=== PATIENT | female | born 1970 | race Caucasian/White ===

== ENCOUNTER 2019-05-13 05:09 | Emergency (ER) | payer SELFPAY ==
[~2019-05-13] VITALS: Ht 167.6 cm; Wt 75.3 kg
[2019-05-13 05:14] VITALS: BP 122/81
--- NOTE | 2019-05-13 05:16 | NUR ---
PT AMBULATED TO ER BED 2
--- NOTE | 2019-05-13 05:23 | NUR ---
DR. SAMANO BEDSIDE EVALUATING PT
--- NOTE | 2019-05-13 05:24 | NUR ---
48/F PRESENTS TO ED WITH FAMILY/FRIEND, C/O GRADUAL ONSET, WORSENING NONPRODUCTIVE COUGH AND WHEEZING, X1 WEEK. BL INSPIRATORY AND EXPIRATORY WHEEZING NOTED. DENIES ANY PAIN. AOX4, SKIN NORMAL WARM AND DRY, RR EVEN AND UNLABORED. HX ASTHMA; SOCIAL HX SMOKER (LESS THAN 10 CIGARETTES/DAY) RX INHALER (RAN OUT)
[2019-05-13] MEDS ORDERED: predniSONE 20 MG TAB PO ONE (05:25)
[2019-05-13] MEDS ORDERED: ALBUTEROL 0.083% 2.5 MG/3 ML NEBU INH ONE ×2 (05:25→06:00)
[2019-05-13 06:41] VITALS: BP 107/56
--- NOTE | 2019-05-13 06:42 | NUR ---
Patient discharged with v/s stable. Written and verbal after care instructions given and explained. Patient alert, oriented and verbalized understanding of instructions. Ambulatory with steady gait. All questions addressed prior to discharge. ID band removed. Patient advised to follow up with PMD. Rx of NAPROSYN, KEFLEX, ALBUTEROL, PREDNISONE given. Patient educated on indication of medication including possible reaction and side effects. Opportunity to ask questions provided and answered.
== END 2019-05-13 06:42 | disposition home or self-care (01) ==
LOC: MED 05:09
DX: J06.9 Acute upper respiratory infection, unspecified (principal); J45.909 Unspecified asthma, uncomplicated; F17.210 Nicotine dependence, cigarettes, uncomplicated; Z88.6 Allergy status to analgesic agent
CPT/HCPCS: 71045; 94640; 99284; J7512; J7613; Q0092

== ENCOUNTER 2019-06-25 13:57 | Emergency (ER) | payer SELFPAY ==
[~2019-06-25] VITALS: Ht 165.1 cm; Wt 72.6 kg
[2019-06-25 14:03] VITALS: BP 130/52
--- NOTE | 2019-06-25 14:09 | NUR ---
C/O LEFT LOWER LEG PAIN X3 DAYS. PT STATES "I WAS PLAYING IN PARK AND I FELL DOWN." CONSTANT SHARP/THROBING PAIN AT 10/10, TX WITH IBUPROFEN WITH NO RELIEF. ANKLE SWOLLEN, BRUISED. +CMS. PATIENT STATES PAIN OF 10/10 AT THIS TIME. PATIENT POSITIONED FOR COMFORT; LLL ELEVATED; BEDRAILS UP X1; BED DOWN. ER MD MADE AWARE OF PT STATUS.
[2019-06-25] MEDS ORDERED: IBUPROFEN 600 MG TAB PO ONE (14:20)
--- NOTE | 2019-06-25 14:27 | NUR ---
XRAY AT BEDSIDE
[2019-06-25 16:02] VITALS: BP 123/56
--- NOTE | 2019-06-25 16:02 | NUR ---
Note undone in EDM - 06/25/19 at 1604 by MED1 Patient discharged BY DR GUEVARA with v/s stable. Written and verbal after care instructions given and explained. Patient alert, oriented and verbalized understanding of instructions. Ambulatory with steady gait. All questions addressed prior to discharge. ID band removed. Patient advised to follow up with PMD. Rx of NAPROSYN given. Patient educated on indication of medication including possible reaction and side effects. Opportunity to ask questions provided and answered.
--- NOTE | 2019-06-25 16:02 | NUR ---
Patient discharged BY DR GUEVARA with v/s stable. Written and verbal after care instructions given and explained. Patient alert, oriented and verbalized understanding of instructions. Ambulatory with CRUTCHES. All questions addressed prior to discharge. ID band removed. Patient advised to follow up with PMD. Rx of NAPROSYN given. Patient educated on indication of medication including possible reaction and side effects. Opportunity to ask questions provided and answered.
== END 2019-06-25 16:02 | disposition home or self-care (01) ==
LOC: MED 13:57
DX: S82.832A Other fracture of upper and lower end of left fibula, initial encounter for closed fracture (principal); J45.909 Unspecified asthma, uncomplicated; W01.0XXA Fall on same level from slipping, tripping and stumbling without subsequent striking against object, initial encounter; Y93.89 Activity, other specified; Y92.89 Other specified places as the place of occurrence of the external cause; Y99.8 Other external cause status
CPT/HCPCS: 29515; 73590; 73610; 99283; Q0092